=== PATIENT | female | born 1980 | race African-American/Black ===

== ENCOUNTER 2016-06-29 11:27 | Emergency (ER) ==
[2016-06-29 11:50] LABS: URINE CULTURE PL NEEDED? NO; URINE SOURCE CLEAN CATCH
[2016-06-29 11:57] LABS: BILIRUBIN URINE NEGATIVE (NEGATIVE); BLOOD URINE 4+ (NEGATIVE); CLARITY CLEAR (CLEAR); COLOR YELLOW; GLUCOSE URINE NEGATIVE (NEGATIVE); LEUKOCYTES URINE TRACE (NEGATIVE); NITRITE URINE NEGATIVE (NEGATIVE); PROTEIN URINE NEGATIVE (NEGATIVE); UROBILINOGEN URINE NORMAL
[2016-06-29 12:17] LABS: URINE EPITHELIAL CELLS >10 /HPF (<10); URINE RBC 20-40 /HPF (<10); URINE WBC <10 /HPF (<10)
[2016-06-29] MEDS ORDERED: LEVSIN PO ONE (13:33)
--- NOTE | 2016-06-29 13:34 | PROVIDER DOCUMENTATION ---
HPI-Abdominal Pain/GI Problem - General Chief Complaint: Constipation Stated Complaint: UTI SX Time Seen by Provider: 06/29/16 13:23 Source: patient Allergies/Adverse Reactions: Patient Allergies Allergy/AdvReac Type Severity Reaction Status Date / Time aspirin Allergy NAUSEA/VOMI Verified 02/22/16 22:55 TING ibuprofen Allergy NAUSEA/VOMI Verified 02/22/16 22:55 TING latex Allergy RASH Verified 02/22/16 22:55 - History of Present Illness-ABD Nature of Presenting Problems: 36 y/o AAF c/o lower abdominal pain 3 days ago, with frequency or urination and not much coming out when she goes. Also having constipation for the past few days, with generalized abdominal discomfort. Subjective fevers and chills. Denies poor appetite Abdominal Pain Onset Location: reports: RUQ, suprapubic Pain Radiation: reports: no radiation Quality of Pain: reports: fullness Severity in ED: reports: mild Onset/Duration: reports: 3 days ago Timing: reports: still present Review of Systems - Adult - REVIEW OF SYSTEMS - ADULT Constitutional: reports: no symptoms reported. denies: chills, fever, fatique Eyes: reports: no symptoms reported. denies: blurred vision, double vision, eye pain Ears, Nose, Mouth & Throat: reports: no symptoms reported. denies: ear pain, nose pain, throat pain Cardiovascular: reports: no symptoms reported. denies: chest pain, palpitations Respiratory: reports: no symptoms reported. denies: cough, shortness of breath Gastrointestinal: reports: see HPI, abdominal pain, constipation, nausea. denies: diarrhea, vomiting Genitourinary: reports: see HPI, dysuria, frequency, hesitency. denies: discharge, flank pain, urgency Musculoskeletal: reports: no symptoms reported. denies: bone pain, back pain, muscle aches Integumentary: reports: no symptoms reported. denies: rash Neurological: reports: no symptoms reported. denies: ataxia, dizziness/vertigo , headache/migraines Psychiatric: reports: no symptoms reported Endocrine: reports: no symptoms reported Hematologic/Lymphatic: reports: no symptoms reported Allergic/Immunologic: reports: no symptoms reported All Other Systems: Reviewed and Negative Past History - Adult - PAST MEDICAL HISTORY-ADULT Review of Records: reports: Old Records Reviewed, Nursing Assessment Review, Medications Reviewed, Social history reviewed & non-contributory. Major Childhood Illnesses: reports: denies history Cardiovascular: reports: denies history Respiratory: reports: denies history Gastrointestinal: reports: denies history Obstetrical/Gynecological: reports: denies history Genitourinary: reports: other (chronic vaginal problems) Musculoskeletal: reports: chronic pain Neurological: reports: denies history Psychiatric: reports: anxiety, depression, psychiatric problems Endocrine/Immune: reports: denies history Other Conditions: reports: denies history - PRIOR SURGERIES/PROCEDURES Surgical/Procedure History: reports: BTL - IMMUNIZATION STATUS Childhood Immunizations: See Nurse Assessment Flu Vaccine: See Nurse Assessment - FAMILY HISTORY Family History: reviewed, not pertinent - SOCIAL HISTORY Smoking: less than 1 pack/day Provider spent 3-5 mins advising pt. on dangers of tobacco.: Discussed manners to quit use, and f/u contacts for add'l counseling. Substance Use: none/never Alcohol Use Frequency: never Living Situation: family Physical Exam-General - PHYSICAL EXAM-ADULT Initial Vital Signs Reviewed: Yes - CONSTITUTIONAL General Appearance: appears well, alert, no apparent distress - EYES Eyes: PERRL/EOMI, pink conjunctivae - HEAD, EARS, NOSE, MOUTH & THROAT HENMT: normocephalic/atraumatic, moist mucous membranes - NECK Neck: non-tender, full range of motion, supple, normal inspection - RESPIRATORY Respiratory: chest non-tender, lungs clear, normal breath sounds, no pleuratic chest pain, no respiratory distress, no accessory muscle use. negative: respiratory distress, decreased breath sounds, accessory muscle use, crackles, rales, rhonchi, stridor, wheezing - CARDIOVASCULAR Cardiovascular: normal peripheral pulses, regular rate, rhythm, no edema. negative: no murmur - GASTROINTESTINAL (ABDOMEN) Abdominal Exam: normal bowel sounds, soft, no organomegaly, no pulsatile mass, tenderness (suprapubic). negative: abdominal bruit, abnormal bowel sounds, distended, guarding, rigid, rebound - LYMPHATIC Lymphatic: no adenopathy - MUSCULOSKELETAL Back Exam: normal inspection, no CVA tenderness. negative: CVA tenderness Extremity: normal gait - SKIN Integumentary: normal color, normal turgor, warm/dry - NEUROLOGIC Neurologic: grossly normal, no motor/sensory deficits - PSYCHIATRIC Psych/Mental Status: normal mood/affect, normal thought content, normal thought process, oriented x 3 Progress - PLAN OF CARE/RESULTS Progress/Plan/Lab Results: Vital Signs Temp Pulse Resp BP Pulse Ox 06/29/16 11:34 98.1 F 112 H 18 114/87 100 aspirin Allergy (Verified 02/22/16 22:55) NAUSEA/VOMITING ibuprofen Allergy (Verified 02/22/16 22:55) NAUSEA/VOMITING latex Allergy (Verified 02/22/16 22:55) RASH Azithromycin [Zithromax Z-Jamarcus] 250 mg PO DIRECTED #1 pkg 02/23/16 Orphenadrine [Norflex] 100 mg PO BID PRN #20 tablet 02/23/16 Bisacodyl [Dulcolax] 10 mg OH QHS #20 supp 06/29/16 Dicyclomine [Bentyl] 10 mg PO TID AC #20 capsule 06/29/16 Nitrofurantoin Monohyd/M-Cryst [Macrobid 100 mg Capsule] 100 mg PO BID #14 capsule 06/29/16 Laboratory 06/29/16 06/29/16 12:07 11:43 Ser , Semi-Qnt 0.1 Urine Source CLEAN CATCH Urine Color YELLOW Urine Clarity CLEAR Urine pH 5.0 Ur Specific [place] 1.020 Urine Protein NEGATIVE Urine Ketones NEGATIVE Urine Blood 4+ Urine Nitrite NEGATIVE Urine Bilirubin NEGATIVE Urine Urobilinogen NORMAL Urine Microscopic RBC 20-40 A Urine WBC TRACE A Urine Microscopic WBC <10 Ur Epithelial Cells >10 A Urine Glucose NEGATIVE Orders Category Date Time Status flat [FLAT/UPRIGHT ABD/1 VIEW CHEST] [RAD] Stat Exams 06/29/16 11:32 Taken QUANT TEST Stat Lab 06/29/16 12:[address] W/POSS RFLX CULT [URINALYSIS] Stat Lab 06/29/16 11:43 Completed Hyoscyamine [Levsin] Med 06/29/16 13:33 Once 0.125 mg PO NOW ONE - XRAY 1 XRAY: Bilateral XRAY Study: Abdomen Impression: Abnormal (constipation, otherwise nad) Departure - Departure Time of Disposition Order: 13:32 DIAGNOSIS: Acute UTI Constipation Qualifiers: Constipation type: slow transit constipation Qualified Code(s): K59.01 - Slow transit constipation Disposition: HOME 01 Certified Medical Emergency: Emergent Condition: Stable Additional Instructions: ED Follow Up Instructions: You have been treated by a care provider in the Emergency Department. These instructions are being provided to you so you can have an understanding of how to care for yourself upon discharge. Upon discharge from the Emergency Department, you are responsible for making arrangements for follow-up care by a physician of your choice. Take all prescribed medications as directed. Return to the Emergency Department immediately for any new or worsening symptoms. You may call the Physician Referral phone number at [phone] to obtain a list of Physicians who are taking new patients. Prescriptions: Dicyclomine [Bentyl] 10 mg PO TID AC #20 capsule Bisacodyl [Dulcolax] 10 mg OH QHS #20 supp Nitrofurantoin Monohyd/M-Cryst [Macrobid 100 mg Capsule] 100 mg PO BID #14 capsule Attestation - Physician/ Mid-level Attestation Patient care was provided by Mid-level provider (SUBSORTER/PA):: Yes Mid-level provider:: Ann Enriquez Mid-level documentation review:: The Mid-level provider documentation, treatment plan and medical decision making was reviewed by the physician who agrees with all treatment and medical decision making by the MLP.
--- NOTE | 2016-06-29 13:41 | Diag Imaging Result Document ---
PROCEDURE NAME: FLAT/UPRIGHT ABD/1 VIEW CHEST - 06/29/2016 PLAIN RADIOGRAPH OF THE CHEST AND ABDOMEN 3 VIEWS: COMPARISON: Chest radiograph dated 02/23/2016. FINDINGS: There are unremarkable bowel gas and stool patterns. There is no evidence of bowel obstruction. There is no evidence of large volume free abdominal gas. There is no discrete organomegaly. The lungs are grossly clear. The cardiomediastinal silhouette and upper airway are grossly unremarkable. IMPRESSION: No evidence of acute chest or abdominal pathology.
[2016-06-29] MEDS ORDERED: LEVSIN-SL ONE (14:03)
[2016-06-29 14:23] VITALS: BP 136/070
== END 2016-06-29 14:22 | disposition home or self-care (01) ==
LOC: P.ED 11:27
DX: N39.0 Urinary tract infection, site not specified (principal); K59.01 Slow transit constipation; R10.11 Right upper quadrant pain; R10.30 Lower abdominal pain, unspecified; R30.0 Dysuria; R35.0 Frequency of micturition; R39.11 Hesitancy of micturition; G89.29 Other chronic pain; F17.210 Nicotine dependence, cigarettes, uncomplicated; Z71.6 Tobacco abuse counseling; Z79.899 Other long term (current) drug therapy
CPT/HCPCS: 36415; 74022; 81001; 84702; 99283

== ENCOUNTER 2016-08-19 07:45 | Emergency (ER) ==
[2016-08-19] MEDS ORDERED: KLONOPIN PO ONE (08:24)
--- NOTE | 2016-08-19 08:29 | PROVIDER DOCUMENTATION ---
HPI-General Adult - General Source: patient - History of Present Illness -Gen Adult Nature of Presenting Problems: This patient presents for "feeling like she is not going to make it". The patient is being treated for an ear infection with Biaxin. She also is very emotional and crying and states she is very depressed. She is in the department with her 15 year old daughter that attends [employer]. She also cried during the interview with her Mother. She stated her Mother could not work due to back problems and that her Mother had always had a "hard time" even as a child. She has thought about suicide but not lately. There has been one episode of trying to take her life but the details are vague. She is going to the [facility] [place] once a month for the last two years but has never seen the doctor and is not on any meds. Location of Pain/Injury: reports: other (left ear) Pain Radiation: reports: no radiation Quality of Pain: reports: cramping, throbbing Severity: reports: moderate Onset/Duration: reports: other (several weeks) Timing: reports: still present, getting worse Context/Activities at Onset: reports: moderate activity Modifying Factors: improves with: nothing Associated Symptoms: reports: anxiety, fatigue. denies: chest pain, diaphoresis , diarrhea, fever/chills, nausea, shortness of breath, vomiting Similar Symptoms Previously?: Yes Recently seen or treated by another doctor?: Yes <Spencer Cruz - Last Filed: 08/19/16 08:24> <Latisha Rodriguez - Last Filed: 08/19/16 15:37> - General Chief Complaint: Anxiety Stated Complaint: N/V/D Time Seen by Provider: 08/19/16 08:07 Allergies/Adverse Reactions: Patient Allergies Allergy/AdvReac Type Severity Reaction Status Date / Time No Known Allergies Allergy Verified 08/19/16 08:39 Home Medications: Home Medication List Medication Instructions Recorded Confirmed Last Taken Type Clonazepam [Klonopin] 0.5 mg PO BID PRN #60 tablet 08/19/16 Unknown Rx Review of Systems - Adult - REVIEW OF SYSTEMS - ADULT Constitutional: reports: no symptoms reported Eyes: reports: no symptoms reported Ears, Nose, Mouth & Throat: reports: ear pain Cardiovascular: reports: no symptoms reported Respiratory: reports: no symptoms reported Gastrointestinal: reports: no symptoms reported Genitourinary: reports: no symptoms reported Musculoskeletal: reports: no symptoms reported Integumentary: reports: no symptoms reported Neurological: reports: no symptoms reported Psychiatric: reports: anxiety, depression, emotional problems, panic attacks Endocrine: reports: no symptoms reported Hematologic/Lymphatic: reports: no symptoms reported Allergic/Immunologic: reports: no symptoms reported All Other Systems: Reviewed and Negative <Spencer Cruz - Last Filed: 08/19/16 08:24> Past History - Adult - PAST MEDICAL HISTORY-ADULT Major Childhood Illnesses: reports: denies history Cardiovascular: reports: denies history Respiratory: reports: denies history Gastrointestinal: reports: denies history Obstetrical/Gynecological: reports: denies history Genitourinary: reports: other (chronic vaginal problems) Musculoskeletal: reports: chronic pain Neurological: reports: denies history Psychiatric: reports: anxiety, depression, psychiatric problems Endocrine/Immune: reports: denies history Other Conditions: reports: denies history - PRIOR SURGERIES/PROCEDURES Surgical/Procedure History: reports: BTL - IMMUNIZATION STATUS Childhood Immunizations: See Nurse Assessment Flu Vaccine: See Nurse Assessment - FAMILY HISTORY Family History: reviewed, not pertinent - SOCIAL HISTORY Smoking: denies <Spencer Cruz - Last Filed: 08/19/16 08:24> Physical Exam-General - PHYSICAL EXAM-ADULT Initial Vital Signs Reviewed: Yes - CONSTITUTIONAL General Appearance: alert, other (emotional) - EYES Eyes: PERRL/EOMI - HEAD, EARS, NOSE, MOUTH & THROAT HENMT: normocephalic/atraumatic, TM abnormal (the left tm appears to be chronically infected with purulent drainage) - NECK Neck: supple - RESPIRATORY Respiratory: lungs clear, normal breath sounds - CARDIOVASCULAR Cardiovascular: regular rate, rhythm - GASTROINTESTINAL (ABDOMEN) Abdominal Exam: non tender, soft - MUSCULOSKELETAL Back Exam: normal inspection Extremity: no pedal edema - SKIN Integumentary: normal color, normal turgor - NEUROLOGIC Neurologic: grossly normal - PSYCHIATRIC Psych/Mental Status: depressed affect <Spencer Cruz - Last Filed: 08/19/16 08:24> Progress - PLAN OF CARE/RESULTS Progress/Plan/Lab Results: Laboratory Tests 08/19/16 08/19/16 08/19/16 08:30 08:30 08:30 WBC RBC Hgb Hct MCV MCH MCHC RDW Std Deviation Plt Count MPV Immature Gran % (Auto) Neut % (Auto) Lymph % (Auto) O'Brien % (Auto) Eos % (Auto) Baso % (Auto) Immature Gran # (Auto) Neut # (Auto) Lymph # (Auto) O'Brien # (Auto) Eos # (Auto) Baso # (Auto) Sodium Potassium Chloride Carbon Dioxide Anion Gap BUN Creatinine Estimated GFR/1.73 m2 BUN/Creatinine Ratio Glucose Calculated Osmolality Calcium Total Bilirubin AST ALT Alkaline Phosphatase Total Protein Albumin Globulin Albumin/Globulin Ratio TSH Free T4 Urine Source CLEAN CATCH Urine Color YELLOW Urine Clarity CLEAR Urine pH 6.0 Ur Specific [place] 1.010 Urine Protein TRACE A Urine Ketones NEGATIVE Urine Blood NEGATIVE Urine Nitrite NEGATIVE Urine Bilirubin NEGATIVE Urine Urobilinogen NORMAL Urine Microscopic RBC Not Reportable Urine WBC TRACE A Urine Microscopic WBC <10 Ur Epithelial Cells >10 A Urine Bacteria 1+ Urine Glucose NEGATIVE Urine Test NEGATIVE Urine Opiates Screen NONE DETECTED Ur Oxycodone Screen NONE DETECTED Urine Methadone Screen NONE DETECTED Ur Barbituates Screen NONE DETECTED Ur Tricyclics Screen NONE DETECTED Ur Phencyclidine Scrn NONE DETECTED Ur Amphetamines Screen NONE DETECTED U Methamphetamines Scrn NONE DETECTED Urine MDMA Screen NONE DETECTED U Benzodiazepines Scrn NONE DETECTED Urine Cocaine Screen NONE DETECTED U Cannabinoids Screen PRESUMPTIVE POSITIVE A Plasma/Serum Ethyl Alc 08/19/16 08/19/16 08/19/16 08:36 08:36 08:36 WBC RBC Hgb Hct MCV MCH MCHC RDW Std Deviation Plt Count MPV Immature Gran % (Auto) Neut % (Auto) Lymph % (Auto) O'Brien % (Auto) Eos % (Auto) Baso % (Auto) Immature Gran # (Auto) Neut # (Auto) Lymph # (Auto) O'Brien # (Auto) Eos # (Auto) Baso # (Auto) Sodium 137 Potassium 3.8 Chloride 103 Carbon Dioxide 24 L Anion Gap 10 BUN 6 L Creatinine 0.7 Estimated GFR/1.73 m2 > 60 BUN/Creatinine Ratio 9 Glucose 99 Calculated Osmolality 271 Calcium 9.3 Total Bilirubin 0.20 AST 17 ALT 11 Alkaline Phosphatase 58 Total Protein 7.3 Albumin 4.4 Globulin 3.0 Albumin/Globulin Ratio 2.0 TSH 0.61 Free T4 1.17 Urine Source Urine Color Urine Clarity Urine pH Ur Specific [place] Urine Protein Urine Ketones Urine Blood Urine Nitrite Urine Bilirubin Urine Urobilinogen Urine Microscopic RBC Urine WBC Urine Microscopic WBC Ur Epithelial Cells Urine Bacteria Urine Glucose Urine Test Urine Opiates Screen Ur Oxycodone Screen Urine Methadone Screen Ur Barbituates Screen Ur Tricyclics Screen Ur Phencyclidine Scrn Ur Amphetamines Screen U Methamphetamines Scrn Urine MDMA Screen U Benzodiazepines Scrn Urine Cocaine Screen U Cannabinoids Screen Plasma/Serum Ethyl Alc 08/19/16 08:36 WBC 4.71 L RBC 4.31 Hgb 12.9 Hct 37.6 MCV 87.2 MCH 29.9 MCHC 34.3 RDW Std Deviation 13.8 Plt Count 250 MPV 9.6 Immature Gran % (Auto) 0.2 Neut % (Auto) 65.4 Lymph % (Auto) 27.2 O'Brien % (Auto) 6.4 Eos % (Auto) 0.6 Baso % (Auto) 0.2 Immature Gran # (Auto) 0.01 Neut # (Auto) 3.08 Lymph # (Auto) 1.28 O'Brien # (Auto) 0.30 Eos # (Auto) 0.03 Baso # (Auto) 0.01 Sodium Potassium Chloride Carbon Dioxide Anion Gap BUN Creatinine Estimated GFR/1.73 m2 BUN/Creatinine Ratio Glucose Calculated Osmolality Calcium Total Bilirubin AST ALT Alkaline Phosphatase Total Protein Albumin Globulin Albumin/Globulin Ratio TSH Free T4 Urine Source Urine Color Urine Clarity Urine pH Ur Specific [place] Urine Protein Urine Ketones Urine Blood Urine Nitrite Urine Bilirubin Urine Urobilinogen Urine Microscopic RBC Urine WBC Urine Microscopic WBC Ur Epithelial Cells Urine Bacteria Urine Glucose Urine Test Urine Opiates Screen Ur Oxycodone Screen Urine Methadone Screen Ur Barbituates Screen Ur Tricyclics Screen Ur Phencyclidine Scrn Ur Amphetamines Screen U Methamphetamines Scrn Urine MDMA Screen U Benzodiazepines Scrn Urine Cocaine Screen U Cannabinoids Screen Plasma/Serum Ethyl Alc Orders Category Date Time Status ALCOHOL BLOOD Stat Lab 08/19/16 08:36 Completed CBC WITH ELECTRONIC DIFF [HEME] Stat Lab 08/19/16 08:36 Completed COMPREHENSIVE METABOLIC PANEL [CHEM] Stat Lab 08/19/16 08:36 Completed FREE T4 Stat Lab 08/19/16 08:36 Results TEST-URINE [PREG] Stat Lab 08/19/16 08:30 Completed TSH Stat Lab 08/19/16 08:[address] W/POSS RFLX CULT [URINALYSIS] Stat Lab 08/19/16 08:30 Completed URINE CULTURE [RM] Routine Lab 08/19/16 09:14 Or[address] DRUG SCREEN [address] Stat Lab 08/19/16 08:30 Completed VITAMIN B12 Stat Lab 08/19/16 08:36 Results Clonazepam [Klonopin] Med 08/19/16 08:24 Discontinued 0.5 mg PO NOW ONE EKG [EKG] Stat Ther 08/19/16 08:23 Draft Vital Signs - 24 hr 08/19/16 07:50 Temperature 98.0 F Pulse Rate 96 H Respiratory 18 Rate Blood Pressure 137/88 O2 Sat by Pulse 99 Oximetry - REASSESSMENT Reassessment #1 Time Reassessed: 09:45 (Pt is consulting with Gio Garcia ) Status: unchanged - EKG 1 Time of EKG reading by physician:: 08:30 EKG Read and Signed by:: Spencer Cruz EKG Interpretation (*Must complete 3 of following elements*): Abnormal Rate: 78 Rhythm: normal sinus rhythm Comments: low voltage QRS; cannot rule out anterior infarct, age undetermined <Latisha Rodriguez - Last Filed: 08/19/16 15:37> Departure <Spencer Cruz - Last Filed: 08/19/16 08:24> - Departure Time of Disposition Order: 15:36 Certified Medical Emergency: Emergent <Latisha Rodriguez - Last Filed: 08/19/16 15:37> - Departure DIAGNOSIS: Panic attacks Depression Qualifiers: Depression Type: unspecified Qualified Code(s): F32.9 - Major depressive disorder, single episode, unspecified Otitis media Qualifiers: Otitis media type: unspecified Laterality: left Chronicity: unspecified Qualified Code(s): H66.92 - Otitis media, unspecified, left ear Disposition: AGAINST MEDICAL ADVICE 07 Condition: Stable Additional Instructions: Follow up with Primary Care Physician and Mental Health center. ED Follow Up Instructions: You have been treated by a care provider in the Emergency Department. These instructions are being provided to you so you can have an understanding of how to care for yourself upon discharge. Upon discharge from the Emergency Department, you are responsible for making arrangements for follow-up care by a physician of your choice. Take all prescribed medications as directed. Return to the Emergency Department immediately for any new or worsening symptoms. You may call the Physician Referral phone number at [phone] to obtain a list of Physicians who are taking new patients. Prescriptions: Clonazepam [Klonopin] 0.5 mg PO BID PRN #60 tablet Referrals: Quincy Rodriguez III, MD [Primary Care Provider] - Attestation - Scribe Verification/Attestation Scribe:: Latisha Rodriguez Acting as Scribe for:: Spencer Cruz Scribe documention review:: This chart was documented by a scribe and accurately reflects the service the provider performed and the decisions made by the provider. <Latisha Rodriguez - Last Filed: 08/19/16 15:37> Physician Attestation
[2016-08-19 08:41] LABS: MANUAL DIFF NEEDED? NO
[2016-08-19 08:42] LABS: URINE SOURCE CLEAN CATCH
[2016-08-19 08:43] LABS: BASO% 0.2 % (0.0-0.8); EOS# 0.03 X1000 (0.0-0.7); EOS% 0.6 % (0.0-10.0); HEMATOCRIT 37.6 % (37.0-47.0); HEMOGLOBIN 12.9 g/dL (12.0-16.0); IMM GRAN# 0.01 X1000 (0.0-0.04); IMM GRAN% 0.2 % (0.0-0.5); LYMPH# 1.28 X1000 (1.2-3.4); LYMPH% 27.2 % (20.5-51.1); MCH 29.9 PG (27-31); MCHC 34.3 g/dL (33-37); MCV 87.2 FL (81-99); MONO% 6.4 % (1.7-9.3); MPV 9.6 FL (7.4-10.4); NEUT% 65.4 % (42.2-75.2); PLT 250 X1000 (130-400); RBC 4.31 XMIL (4.2-5.4)
--- NOTE | 2016-08-19 08:55 | EKG Report ---
Test Performed on : 08/19/2016 08:30:22 AM Test Reason : CP Blood Pressure : / mmHG Vent. Rate : 078 BPM Atrial Rate : 078 BPM P-R Int : 154 ms QRS Dur : 076 ms QT Int : 378 ms P-R-T Axes : 055 077 047 degrees QTc Int : 430 ms Normal sinus rhythm. Low voltage QRS Cannot rule out Anterior infarct , age undetermined Abnormal ECG No previous ECGs available Unconfirmed Result
[2016-08-19 08:57] LABS: UR AMPHETAMINES QUAL NONE DETECTED (NONE DETECT); UR BARBITUATES QUAL NONE DETECTED (NONE DETECT); UR BENZODIAZEPIN QUAL NONE DETECTED (NONE DETECT); UR CANNABINOIDS QUAL PRESUMPTIVE POSITIVE (NONE DETECT); UR COCAINE QUAL NONE DETECTED (NONE DETECT); UR MDMA QUAL NONE DETECTED (NONE DETECT); UR METHADONE QUAL NONE DETECTED (NONE DETECT); UR METHAMPHETAMINE QUAL NONE DETECTED (NONE DETECT); UR OPIATES QUAL NONE DETECTED (NONE DETECT); UR OXYCODONE QUAL NONE DETECTED (NONE DETECT); UR PCP QUAL NONE DETECTED (NONE DETECT); UR TCA QUAL NONE DETECTED (NONE DETECT)
[2016-08-19 09:01] LABS: BILIRUBIN URINE NEGATIVE (NEGATIVE); BLOOD URINE NEGATIVE (NEGATIVE); CLARITY CLEAR (CLEAR); COLOR YELLOW; GLUCOSE URINE NEGATIVE (NEGATIVE); LEUKOCYTES URINE TRACE (NEGATIVE); NITRITE URINE NEGATIVE (NEGATIVE); PROTEIN URINE TRACE mg/dL (NEGATIVE); UROBILINOGEN URINE NORMAL
[2016-08-19 09:02] LABS: AGAP 10; ALBUMIN 4.4 g/dL (3.5-5.0); ALKALINE PHOSPHATASE 58 U/L (32-104); BUN 6 mg/dL (8-22); CALCIUM 9.3 mg/dL (8.8-10.2); CHLORIDE 103 mmol/L (98-107); COSMO 271; GOT 17 U/L (10-30); GPT 11 U/L (10-36); POTASSIUM 3.8 mmol/L (3.5-5.1); SODIUM 137 mmol/L (136-145); TCO2 24 mmol/L (25-35); TOTAL PROTEIN 7.3 g/dL (6.3-8.3)
[2016-08-19 09:13] LABS: URINE CULTURE PL NEEDED? YES; URINE EPITHELIAL CELLS >10 /HPF (<10); URINE WBC <10 /HPF (<10)
[2016-08-19 09:23] LABS: FREE T4 1.17 ng/dL (0.93-1.70)
[2016-08-19 16:14] VITALS: BP 124/77
== END 2016-08-19 16:11 | disposition left against medical advice (07) ==
LOC: P.ED 07:45
DX: F41.0 Panic disorder [episodic paroxysmal anxiety] (principal); F32.9 Major depressive disorder, single episode, unspecified; H66.92 Otitis media, unspecified, left ear; H92.02 Otalgia, left ear
CPT/HCPCS: 36415; 80053; 80305; 81001; 81025; 82607; 84439; 84443; 85025; 87088; 93005; 99284; G0480; 80320